=== PATIENT | female | born 1970 | race Two or more races ===

== ENCOUNTER 2022-01-06 11:32 | Inpatient (IN) | payer OTHER ==
[~2022-01-06] VITALS: Ht 160 cm; Wt 117.7 kg
[2022-01-06] MEDS ORDERED: MORPHINE SULFATE 4 MG/ML SYR/VIAL IV ONE (12:00)
[2022-01-06] MEDS ORDERED: SODIUM CHLORIDE 0.9% 500 ML IVB ONE (12:00)
[2022-01-06] MEDS ORDERED: ONDANSETRON HCL 4 MG/2 ML VIAL IV ONE (12:00)
[2022-01-06] MEDS ORDERED: IOHEXOL 300 MG/ML 100ML BOTTLE IJ ONE (12:25)
[2022-01-06] MEDS ORDERED: metroNIDAZOLE 500MG/100ML 100 ML IV ONE (13:15)
[2022-01-06 13:20] LABS: Basophils # (auto) 0.1 10 ^3/uL (0-0.2); Basophils % (auto) 0.7 % (0.0-2.0); Eosinophils # (auto) 0.2 10 ^3/uL (0-0.8); Hematocrit 43.4 % (36.0-46.0); Hemoglobin 15.2 g/dL (12.2-16.2); Lymphocytes # (auto) 2.6 10 ^3/uL (0.4-5.4); Lymphocytes % (auto) 25.3 % (10.0-50.0); Mean Corpuscular Hemoglobin 31.5 pg (28.0-32.0); Mean Corpuscular Volume 89.8 fL (80.0-100.0); Monocytes # (auto) 0.7 10 ^3/uL (0-1.3); Monocytes % (auto) 6.8 % (0.0-12.0); Neutrophils # (auto) 6.6 10 ^3/uL (1.6-8.6); Neutrophils % (auto) 65.2 % (37.0-80.0); Nucleated Red Blood Cells % 0.1 %; Red Blood Cells 4.83 10^6/uL (4.0-5.20); Red Cell Distribution Width 13.2 % (11.8-14.3); White Blood Cell 10.1 10^3/uL (4.4-10.8)
[2022-01-06 13:37] LABS: Albumin 3.3 g/dL (3.4-5.0); BUN/Creatinine Ratio 14.8; Calcium 8.8 mg/dL (8.5-10.1); Potassium 4.2 mmol/L (3.5-5.1)
[2022-01-06 13:40] LABS: Bilirubin, Total 0.9 mg/dL (0.2-1.0); Total Protein 7.2 g/dL (6.4-8.2)
[2022-01-06 13:46] LABS: Urine Bacteria FEW /hpf (None Seen); Urine Blood Negative /uL (Negative); Urine Mucus FEW (None Seen); Urine Specific Gravity 1.027 (1.001-1.035); Urine WBC 27 /hpf (0 - 5)
[2022-01-06] MEDS ORDERED: ONDANSETRON HCL 4 MG/2 ML VIAL IV PRN (17:00)
[2022-01-06] MEDS ORDERED: cefTRIAXone 1GM/50ML D5W 50 ML IV ONE (17:00)
[2022-01-06 17:29] LABS: Cholesterol 206 mg/dL (< 200)
[2022-01-06 17:32] LABS: HDL Cholesterol 48 mg/dL (40-59); LDL Cholesterol 138 mg/dL (< 100); Triglycerides 153 mg/dL (< 150)
[2022-01-06] MEDS: SOD CHL 0.45% 1,000 ML IV SCH (18:13)
[2022-01-06 21:17] VITALS: BP 118/73
[2022-01-06 22:00] VITALS: BP 133/88
[2022-01-06] MEDS: MORPHINE SULFATE INJ 2 MG/ml SYRG IV PRN (22:18)
[2022-01-07] MEDS: SOD CHL 0.45% 1,000 ML IV SCH ×4 (03:15→21:49)
[2022-01-07 05:00] VITALS: BP 122/86
[2022-01-07 07:16] LABS: Basophils # (auto) 0 10 ^3/uL (0-0.2); Basophils % (auto) 0.6 % (0.0-2.0); Eosinophils # (auto) 0.1 10 ^3/uL (0-0.8); Hematocrit 39.9 % (36.0-46.0); Hemoglobin 13.7 g/dL (12.2-16.2); Lymphocytes % (auto) 27.5 % (10.0-50.0); Mean Corpuscular Hemoglobin 31.5 pg (28.0-32.0); Mean Corpuscular Hgb Conc. 34.3 g/dL (32.0-36.0); Mean Corpuscular Volume 91.7 fL (80.0-100.0); Monocytes # (auto) 0.5 10 ^3/uL (0-1.3); Monocytes % (auto) 6.5 % (0.0-12.0); Neutrophils # (auto) 4.7 10 ^3/uL (1.6-8.6); Neutrophils % (auto) 63.4 % (37.0-80.0); Nucleated Red Blood Cells % 0.1 %; Red Blood Cells 4.36 10^6/uL (4.0-5.20); White Blood Cell 7.4 10^3/uL (4.4-10.8)
[2022-01-07 07:40] LABS: Albumin 2.9 g/dL (3.4-5.0); BUN/Creatinine Ratio 13.1; Bilirubin, Total 0.7 mg/dL (0.2-1.0); Total Protein 6.4 g/dL (6.4-8.2)
[2022-01-07] MEDS: cefTRIAXone 1GM/50ML D5W 50 ML IV SCH (08:55)
[2022-01-07] MEDS: MORPHINE SULFATE INJ 2 MG/ml SYRG IV PRN (08:57)
[2022-01-07 09:00] VITALS: BP 124/89
[2022-01-07] MEDS ORDERED: ACETAMINOPHEN 325 MG TAB PO PRN (11:15)
[2022-01-07 13:00] VITALS: BP 129/79
[2022-01-07] MEDS: metroNIDAZOLE 500MG/100ML 100 ML IV SCH ×2 (14:54→21:45)
[2022-01-07 17:00] VITALS: BP 110/51
[2022-01-07 22:30] VITALS: BP 132/73
[2022-01-08 05:26] VITALS: BP 130/69
[2022-01-08] MEDS: metroNIDAZOLE 500MG/100ML 100 ML IV SCH ×3 (05:48→21:50)
[2022-01-08 09:00] VITALS: BP 130/71
[2022-01-08] MEDS: SOD CHL 0.45% 1,000 ML IV SCH (09:26)
[2022-01-08] MEDS: SODIUM CHLORIDE 0.9% 1,000 ML IV SCH ×2 (09:30→17:30)
[2022-01-08] MEDS ORDERED: SODIUM CHLORIDE 0.9% 1,000 ML IV SCH (09:30)
[2022-01-08] MEDS: cefTRIAXone 1GM/50ML D5W 50 ML IV SCH (09:55)
[2022-01-08 12:30] VITALS: BP 135/87
[2022-01-08] MEDS ORDERED: LACTULOSE 20Gm/30ML SOLN PO PRN (16:45)
[2022-01-08 17:00] VITALS: BP 135/81
[2022-01-08 22:00] VITALS: BP 148/93
[2022-01-09] MEDS: SODIUM CHLORIDE 0.9% 1,000 ML IV SCH ×2 (01:30→09:30)
[2022-01-09 05:00] VITALS: BP 115/42
[2022-01-09] MEDS: metroNIDAZOLE 500MG/100ML 100 ML IV SCH ×2 (05:30→14:00)
[2022-01-09 08:00] VITALS: BP 114/62
[2022-01-09] MEDS: cefTRIAXone 1GM/50ML D5W 50 ML IV SCH (09:29)
[2022-01-09] MEDS ORDERED: CIPR-173 PO (09:48)
[2022-01-09] MEDS ORDERED: METR500T PO (09:48)
[2022-01-09 11:47] VITALS: BP 123/77
[2022-01-09 12:00] VITALS: BP 141/84
== END 2022-01-09 15:45 | disposition home or self-care (01) | DRG 244 ==
LOC: ER 11:32 → EAST 17:00
PROVIDERS: ADMIT Registered Nurse; ATTEND Family Medicine
DX: K57.32 Diverticulitis of large intestine without perforation or abscess without bleeding (principal); K76.0 Fatty (change of) liver, not elsewhere classified; E66.01 Morbid (severe) obesity due to excess calories; B96.20 Unspecified Escherichia coli [E. coli] as the cause of diseases classified elsewhere; K52.9 Noninfective gastroenteritis and colitis, unspecified; E86.0 Dehydration; E78.00 Pure hypercholesterolemia, unspecified; N39.0 Urinary tract infection, site not specified; Z68.41 Body mass index [BMI] 40.0-44.9, adult; Z20.822 Contact with and (suspected) exposure to COVID-19
CPT/HCPCS: 36415; 74176; 80053; 80061; 81001; 83036; 83690; 85025; 87086; 87088; 87186; 96365; 96367; 96375; G0378; J0696; J2405; J3490